=== PATIENT | female | born 1970 | race Caucasian/White ===

== ENCOUNTER 2024-12-06 11:48 | Emergency (ER) | payer OTHER ==
[~2024-12-06] VITALS: Ht 160 cm; Wt 94.0 kg
[2024-12-06 11:50] VITALS: TEMP 96.6
[2024-12-06 12:37] LABS: LEUKOCYTE ESTERASE ,URINE TRACE (Neg); NITRITES, URINE NEGATIVE (Neg); OCCULT BLOOD,URINE NEGATIVE (Neg); URINE HCG NEGATIVE (NEG)
[2024-12-06 12:39] LABS: MEAN PLATELET VOLUME 8.7 FL (7.4-10.4); RED CELL DISTRIBUTION WIDTH 13.0 % (11.5-14.5)
[2024-12-06 12:44] LABS: UA COLLECTION TYPE CLN CATCH MIDSTREAM
[2024-12-06 12:45] LABS: SQUAMOUS EPITHELIAL CELL,UR MANY /LPF (FEW)
[2024-12-06 12:46] LABS: MUCUS STRANDS MODERATE /LPF (Neg)
[2024-12-06 12:49] LABS: CREATININE 0.55 MG/DL (0.40-0.90); TOTAL CARBON DIOXIDE 26.8 MMOL/L (24-32); eCRCL 98 ML/MIN; eGFR > 90 ML/MIN
--- NOTE | 2024-12-06 12:50 | RADIOLOGY REPORT ---
CT CT CHEST ABDOMEN PELVIS INDICATION: abd pain EXAM DATE: 12/06/2024 12:03 PM COMPARISON: None RADIATION DOSE: CTDIvol: 31 mGy, DLP: 2440 mGy*cm PROCEDURE: Helical CT images were obtained of the chest, abdomen, and pelvis without intravenous cont rast. Sagittal and coronal reconstructions are provided. ORAL CONTRAST: None. ADDITIONAL IMAGES / REFORMATS: None All CT scans at this medical facility are performed using dose modulation techniques as appropriate t o a performed exam including the following: Automated exposure control was utilized; adjustment of th e MA and/or KV according to patient size; and use of iterative reconstruction technique. FINDINGS: CHEST: BONES: Scattered degenerative changes are noted in the visualized osseous structures. CHEST WALL: Normal. SOFT TISSUES:Normal. MEDIASTINUM: Normal. HEART: Normal. VESSELS: Normal. LYMPH NODES: Normal. PLEURA: Normal. AIRWAYS: Normal. LUNG: Normal. ABDOMEN AND PELVIS: BONES: Scattered degenerative changes are noted in the visualized osseous structures. LIVER: Hepatic steatosis. GALLBLADDER AND BILIARY TREE: No calcified gallstones. Normal caliber wall. No intra- or extrahepatic biliary ductal dilation. PANCREAS: Normal. SPLEEN: Normal. BOWEL: Mild diverticulosis.. Small short appendix appears normal. ADRENALS: Normal. KIDNEYS AND URETER: Left parapelvic cyst. BLADDER: Normal. REPRODUCTIVE ORGANS: 4.4 cm circumferentially calcified mass in the uterus could be a calcified fibro id, with other etiology not excluded. LYMPH NODES:No lymphadenopathy. PERITONEUM: No ascites or free air. No other fluid collection. VESSELS: Normal RETROPERITONEUM: Normal. ABDOMINAL WALL: Normal. IMPRESSION: No acute intrathoracic or intraabdominal abnormality. 4.4 cm circumferentially calcified mass in the uterus could be a calcified fibroid, with other etiolo gy not excluded. Hepatic steatosis.
--- NOTE | 2024-12-06 14:34 | Physician Documentation ---
History of Present Illness Chief Complaint: Abdominal Pain Stated Complaint: FLANK PAIN Time Seen by MD: 14:01 Mode of Arrival: POV HPI 54 yof p/w left sided flank pain. Ongoing the last seven days. Sharp stabbing pain. Worsened with back rotation and bending. no sob. no cough, no chest pain. Review of Systems All Other Systems at this time: Reviewed and Negative Constitutional: Denies: fever Respiratory: Denies: cough, orthopnea Cardiovascular: Denies: chest pain Gastrointestinal: Reports: nausea; Denies: vomiting, diarrhea, constipated, melena, hematemesis, hematochezia, rectal bleeding, rectal pain, poor appetite, poor fluid intake Genitourinary: Denies: burning, dysuria Female Genitalia: Denies: vaginal discharge, vaginal pain, pelvic pain Neurological: Denies: headache Musculoskeletal: Denies: neck pain Physical Exam Vital Signs: Temperature: 96.6, Heart Rate: 69, Respiratory Rate: 18, BP: 148/9 0, Pulse Oximetry: 98, Weight: 94.000 Oxygen Flow Rate: 0 General Appearance well appearing no distress mmm no jvd ctab abd soft non tender msk: ttp left lateral chest wall/costal margin. no cva ttp. Progress Results/Orders Reviewed/noted all lab results: Yes Results/Orders Vital Signs 12/06/24 12/06/24 12/06/24 11:50 12:47 12:57 Temp 96.6 Pulse 91 69 Resp 16 18 B/P (MAP) 194/107 148/90 (109) Pulse Ox 99 98 O2 Flow Rate 0 Laboratory Tests Test 12/06/24 11:54 12/06/24 12:16 Urine Specimen Description Cln catch midstream Urine Color Yellow Urine Clarity Clear Urine pH 6.0 Urine Specific Loman >=1.030 Urine Protein Negative Urine Glucose (UA) Negative Urine Ketones Negative Urine Occult Blood Negative Urine Nitrite Negative Urine Bilirubin Negative Urine Urobilinogen 0.2 Urine Leukocyte Esterase Trace H Urine RBC 0-2 Urine WBC 10-20 H Urine Squamous Epithelial Cells Many Urine Bacteria Few Urine Mucus Moderate Urine Culture Indicated Rejected for culture Volume Urine Centrifuged 10 ml Urine HCG, Qualitative Negative Urine Comment White Blood Count 6.3 Red Blood Count 5.01 Hemoglobin 15.0 Hematocrit 43.0 Mean Corpuscular Volume 85.9 Mean Corpuscular Hemoglobin 29.9 Mean Corpuscular Hemoglobin Concent 34.8 Red Cell Distribution Width 13.0 Platelet Count 260 Mean Platelet Volume 8.7 Neutrophils (%) (Auto) 43.3 Lymphocytes (%) (Auto) 43.9 Monocytes (%) (Auto) 8.2 Eosinophils (%) (Auto) 3.9 Basophils (%) (Auto) 0.7 Neutrophils # (Auto) 2.7 Lymphocytes # (Auto) 2.8 Monocytes # (Auto) 0.5 Eosinophils # (Auto) 0.2 Basophils # (Auto) 0.0 CBC Comment Sodium Level 138 Potassium Level 4.0 Chloride Level 103 Carbon Dioxide Level 26.8 Anion Gap 8 Blood Urea Nitrogen 13 Creatinine 0.55 Estimated GFR/1.73 m2 > 90 BUN/Creatinine Ratio 23.6 H Glucose Level 105 H Calcium Level 9.3 Total Bilirubin 0.4 Aspartate Amino Transf (AST/SGOT) 19 Alanine Aminotransferase (ALT/SGPT) 34 Alkaline Phosphatase 85 Total Protein 7.1 Albumin 4.2 Globulin 2.9 Albumin/Globulin Ratio 1.4 Lipase 25 Chemistry Comments EKG/XRAY/CT/US/VASC/MRI CT : Impression CT abd independently interpreted shows no urolithiasis or perforation Medical Decision Making Differential Dx:Considerations: Unlikely: -Complete, - Incomplete, -Inevitable Departure Disposition: 01 HOME / SELF CARE / HOMELESS Impression: Primary Impression: Musculoskeletal pain Additional Impression Text 54 yof p/w left chest wall/abd pain. no sob. normal vitals. Benign labs and CT. chronic fibroid on CT. Clearly msk on exam. Additional Instructions: You have reassuring tests today. Please follow up with your PCP to discuss your abnormal uterine finding. If your symptoms worsen please return to the ED. Referrals: NO PRIMARY CARE PROVIDER (PCP) Signature Scribe Signature: na Attestation: LEÓN Rowan MD Dec 06, 2024 14:34
[2024-12-06] MEDS: ketorolac trometh 30MG/ML vial 30 MG/ML VIAL IV ONE (15:40)
[2024-12-06 16:08] VITALS: BP 130/76; PULSE 66; RESP 18; O2SAT 98
== END 2024-12-06 15:55 | disposition home or self-care (01) ==
LOC: ER 11:49
DX: M79.18 Myalgia, other site (principal); R10.9 Unspecified abdominal pain
CPT/HCPCS: 36415; 71250; 74176; 80053; 81001; 81025; 83690; 85025; 99284